=== PATIENT | male | born 1965 | race Caucasian/White ===

== ENCOUNTER 2024-01-08 09:54 | Emergency (ER) | payer BC, SELFPAY ==
[2024-01-08 10:14] VITALS: BP 142/89; PULSE 60; RESP 16; TEMP 36.6; O2SAT 100
--- NOTE | 2024-01-08 10:17 | ED.NAVMDI ---
HPI - Nausea/Vomiting/Diarrhea General Chief complaint: Nausea/Vomiting/Diarrhea Stated complaint: hemorrhoid Time Seen by Provider: 01/08/24 10:17 Source: patient, RN notes reviewed and old records reviewed Mode of arrival: ambulatory Limitations: no limitations History of Present Illness HPI Narrative: 58-year-old male to Express Care with complaint of hemorrhoid for 1 day. Patient has attempted to treat at home with witsolange Dunnel. Patient reports having strenuous bowel movement yesterday prior to noticing hemorrhoid. Patient denies history of hemorrhoids, bleeding, constipation, dietary changes, allergies, pertinent medical history. Patient reports having a bowel movement every 1-2 days. Patient resting in exam room in no acute distress. Related Data Home Medications Medication Instructions Recorded Confirmed atorvastatin 40 mg tablet 40 mg PO DAILY 01/08/24 01/08/24 lisinopril 10 mg tablet 10 mg PO DAILY 01/08/24 01/08/24 Allergies Allergy/AdvReac Type Severity Reaction Status Date / Time No Known Allergies Allergy Mild Verified 01/08/24 10:13 Review of Systems Review of Systems: All systems reviewed & are unremarkable except as noted in HPI and below Constitutional: Constitutional: Reports no additional constitutional complaints Eyes: Eyes: Reports no additional eye complaints ENT: Reports system reviewed and no additional complaints, except as documented Cardiovascular: Cardiovascular: Reports no additional cardiovascular complaints, Denies chest pain and Denies dyspnea Respiratory: Respiratory: Reports no additional respiratory complaints, Denies cough and Denies dyspnea Gastrointestinal: Gastrointestinal: Reports as per HPI and Reports other ( Hemorrhoid; strenuous bowel movement yesterday) Musculoskeletal: Musculoskeletal: Reports no additional musculoskeletal complaints Neurologic: Reports system reviewed and no additional complaints, except as documented Psychiatric: Psychiatric: Reports no additional psychiatric complaints PMFSH Comments At the time of my signature, I reviewed and agree with the nursing past medical, surgical, social, and family history. There is no relevant family history pertinent to the patient complaint. Exam Const: General: cooperative, healthy appearing, comfortable, no acute distress, alert and well nourished Nutritional Appearance: well nourished Orientation/consciousness: patient oriented x3 Limitations: no limitations HENMT: Head: normal to inspection Ears: external ears normal Face/Nose/Sinus: Normal external nose present, Normal nares present, normal facial exam, No erythema and No edema Face and sinus: normal facial exam, no erythema and no edema Mouth: Yes Normal oral and palatal mucosa present Eyes: General: appearance normal, both eyes and all related structures Neck: Neck: normal visual inspection, full ROM and no meningeal signs Chest: Chest palpation & inspection: normal inspection of the chest Resp: Effort & Inspection: normal respiratory effort and able to speak in complete sentences Cardio: Jugular venous distension: no JVD Rate: regular rate GI: Rectal Exam: External hemorrhoid(s) present Back/Spine/Pelvis: Cervical Spine: cervical ROM normal Skin: General skin exam: normal color, no rashes or lesions noted and turgor normal Neuro: General: patient oriented x3, gait normal, moves all extremities and no meningeal signs Speech: normal speech Gait exam (Neuro): Normal gait present Extrem: General: normal to inspection, full ROM and capillary refill normal Psych: Appearance: grossly normal and well kempt Course Course Emergency Course: Some parts of this dictation were generated by voice recognition software and may contain typographical and/or grammatical inaccuracies. Level of Care: Express Care Visit Vital Signs Vital signs: Vital Signs Temperature 36.6 C 01/08/24 10:14 Pulse Rate 60 01/08/24 10:14 Respiratory Rat
== END 2024-01-08 11:24 | disposition home or self-care (01) ==
PROVIDERS: Emergency Provider Nurse Practitioner Family
DX: K64.4 Residual hemorrhoidal skin tags (principal)
CPT/HCPCS: 99203; G0463

== ENCOUNTER 2024-03-25 15:51 | Emergency (ER) | payer BC, SELFPAY ==
--- NOTE | 2024-03-25 16:10 | ED_ITS ---
HPI - Fever General Chief Complaint: Fever Stated Complaint: Fever Time Seen by Provider: 03/25/24 16:24 Source: patient and RN notes reviewed Mode of arrival: ambulatory Limitations: no limitations History of Present Illness HPI Narrative: 4-year-old male presents concern for fever that started today. He reports mild headache for a few days. He reports some nasal congestion. He denies cough, shortness of breath, sore throat. MD elicited complaint: fever Related Data Home Medications ?Medication ?Instructions ?Recorded ?Confirmed ?Last Taken ?Type atorvastatin 40 mg tablet 40 mg PO DAILY 01/08/24 01/08/24 Unknown History lisinopril 10 mg tablet 10 mg PO DAILY 01/08/24 01/08/24 Unknown History Allergies Allergy/AdvReac Type Severity Reaction Status Date / Time No Known Allergies Allergy Mild Verified 03/25/24 16:20 Review of Systems Review of Systems: CONSTITUTIONAL: Denies malaise, chills, sweats. Reports fever. EYES: Denies visual changes, redness, or discharge. ENT: Reports rhinorrhea, congestion. Denies sinus pain, otalgia and sore throat. CARDIOVASCULAR: Denies chest pain, palpitations, or edema. RESPIRATORY: Reports cough. Denies dyspnea. GASTROINTESTINAL: Denies abdominal pain, nausea, vomiting, diarrhea SKIN: Denies rash or itching. MUSCULOSKELETAL: Denies myalgia. NEUROLOGIC: Reports headache. All systems reviewed & are unremarkable except as noted in HPI and below PMFSH Comments At time of signature, agree with nursing past medical, surgical, social and family history. There is no relevant family history pertinent to the presenting complaint Exam Narrative: GENERAL: Well-appearing, well-nourished, and in no acute distress. HEAD: Normocephalic EYES: PERRLA, conjunctivae clear ENT: Nares clear. Mucous membranes moist. TM pearly ferrera with sharp light reflex bilaterally; no tragal tenderness. Oropharynx not erythematous without lesions. Tonsils not enlarged and without exudate, no drooling, no hoarseness, no trismus, uvula midline. NECK: Supple. No lymphadenopathy CHEST: Clear to auscultation, breath sounds equal. No wheezing, rhonchi, rales, or stridor. No respiratory distress, speaks in full sentences. HEART: Regular rate and rhythm. No murmur heard. SKIN: Warm, dry, no rash. NEURO: Alert and oriented x3. PSYCH: Normal mood and affect Course Course Emergency Course: Patient is aware of diagnosis, understands and agrees to treatment plan. Anticipatory guidance given. Patient agrees to follow-up as directed and is aware of reasons to seek care at the emergency department. Portions of this record may have been created with voice recognition software Level of Care: Express Care Visit Vital Signs Vital signs: Reviewed. MDM - Fever Lab Data Attestation: I reviewed the patient's lab results. Critical Care Time Critical Care Time Critical Care Time: No Discharge Plan Discharge Clinical Impression: Viral illness Patient Disposition: Home, Self-Care Condition: Stable Instructions: Viral Syndrome (ED) Additional Instructions: Your rapid COVID and flu tests are negative Your rapid strep swab was negative today at [facility]. A throat culture will be sent to the laboratory for further testing. If the test is positive, you will receive a phone call within 48 hours and an appropriate antibiotic will be initiated at that time. Your symptoms are likely due to a viral illness, which is not treated with antibiotics. Viral symptoms can be present for up to a few weeks. -Alternate Tylenol and Motrin per package directions for fever or pain. -Antihistamine medication such as Benadryl at night and Zyrtec during the day can help improve symptoms. -Eat and drink things that are easy to swallow, like tea or soup, or popsicles to suck on. -Oral rinses such as: Salt water gargles and/or may use topical anesthetic (eg. Chloraseptic spray) or lozenges to relieve dryness or throat pain). -Frequent hand washing or hand partner alliance manager is one of the best ways to prevent spread of infection. -Follow up with primary care provider in 2-3 days if condition is not improving; or seek ER visit if you have trouble breathing, cannot drink enough fluids, have muffled voice, difficulty opening your mouth, or severe swelling. Patient Language: Hungarian Prescriptions: New pseudoephedrine HCl [12 Hour Decongestant] 120 mg tablet extended release 120 mg PO Q12H PRN (Reason: nasal congestion) Qty: 20 0RF No Action atorvastatin 40 mg tablet 40 mg PO DAILY lisinopril 10 mg tablet 10 mg PO DAILY hydrocortisone [Proctosol HC] 2.5 % cream with perineal applicator 1 applic RECTAL DAILY PRN (Reason: hemorrhoids) Qty: 30 0RF Rx Instructions: Do not use for more than 7 days Follow-up/Referrals: PHYSICIAN,MANAGER WORK [Primary Care Provider] - Time of Disposition: 16:33
[2024-03-25 16:23] VITALS: BP 141/88; PULSE 78; RESP 16; TEMP 37.6; O2SAT 100
[2024-03-25 16:30] LABS: EDCOVIDSCREEN Negative (Negative); EDINFLUASCREEN Negative (Negative); EDINFLUBSCREEN Negative (Negative); EDSTREPNEGPOS1 Negative (Negative)
== END 2024-03-25 16:35 | disposition home or self-care (01) ==
PROVIDERS: Emergency Provider Nurse Practitioner
DX: B34.9 Viral infection, unspecified (principal); Z20.822 Contact with and (suspected) exposure to COVID-19
CPT/HCPCS: 87081; 87426; 87804; 87880; 99213; G0463

== ENCOUNTER 2024-12-01 11:24 | Emergency (ER) | payer BC, SELFPAY ==
--- OUTSIDE RECORDS SUMMARY | 2010-08-08 19:00 | XMS_ITS | Continuity of Care Document ---
[facility] Organization [facility] Address [address] [place] [address] Phone Care Team Providers Care Traffic Maintenance Officer Name Role Phone Conversion MD, Doctor Unavailable Unavailabl e Medications Medication Instructions Dosage Effective Dates (start - stop) Status Comments FLONASE 50MCG APPLICS 2 QD - Acti ve HYDROCHLOROTHIAZIDE 25 MG TB 1 QAM - Active NICOLAS 180MG TABS 1 QD - Active ALBUTEROL 90MCG PUFFS 2 QID - Acti ve AMOXICILLIN 500MG CAPS 1 TID - No Longer Active DOXYCYCLINE MONOHYDRATE 100MG 1 QD - No Longer Active GUAIFENESIN W/CODEINE 100-10MG 10 Q 4HR - No Longer Active HYDROCHLOROTHIAZIDE 25MG TABS 1 QAM - No Longer Active Advance Directives Directive Yes / No Effective Date File Name No Information Encounters Encounter Description Practice Location Reason(s) For Visit Diagnoses Date Provider Providers Copied on Encounter [facility], [address], [place], [place], [address], tel:[phone] [facility] No Information 7-201 1 Conversion Doctor. [facility] [place], [address], . [facility], [address], [place], [place], [address], tel:[phone] [facility] ACUTE SINUSITIS NOS 0-200 6 Conversion Doctor. [place], [address], . [facility], [address], [place], [place], [address], tel:[phone] [facility] BENIGN HYPERTENSION Dec-2 0-200 5 Conversion Doctor. [address] [facility], [place], [address], [place]. [facility], [address], [place], [place], [address], tel:[phone] [facility] GOITER NOS Dec-0 8-200 5 Arsenio Bryan. [address], [place], [place], [address], [place]. tel:[phone] [facility] [address], [place], [place], [address], tel:[phone] [facility] ACUTE BRONCHITISLOCAL SUPRFICIAL SWELLNGELEV BL PRES W/O HYPERTN Dec-0 6-200 5 Arsenio Bryan. [address], [place], [place], [address], [place]. tel:[phone] [facility] [address], [place], [place], [address], tel:[phone] [facility] COUGH Feb-2 1-200 5 Conversion Doctor. [address] [facility], [place], [address], [place] [facility] [address], [place], [place], [address], tel:[phone] [facility] SPRAIN NOSMIXED HYPERLIPIDEMIA Fidencio-2 3-200 4 Arsenio Bryan. [address], [place], [place], [address], [place]. tel:[phone] [facility], [address], [place], [place], [address], tel:[phone] [facility] SCREEN-BLOOD DIS NOSCARPAL TUNNEL SYNDROMEOTITIS MEDIA NOS Sep-2 5-200 0 [place] Bryan. [address], [place], [place], [address], [place]. tel:[phone] Family History Family Member Type Diagnosis Age At Onset No Information Payers Payer name Insurance type Covered democrat ID Authoriza tion(s) No Information Social History Type Description Quantity Date Captured Comments Sex Male Smoking Status No Information Chief Complaint And Reason For Visit No Information Reason For Referral Reason For Referral No Information History Of Present Illness Encounter Date Complaint History Of Prese nt Illness No Information Functional Status Date Functional Assessmen t No Information Instructions Date Instruction Additional Infor mation No Information Assessments Type Assessment Date No Information Patient Care Teams Name Effective Dates (start - stop) Status Members No Information
--- NOTE | ~2024-12-01 | XR_ITS ---
XR finger 1st RT min 2V 12/01/2024 12:19 Indication: Dog bite right first finger Procedure: 3 views right first finger Comparison: No prior studies for comparison. Findings: No fracture, subluxation or dislocation. No soft tissue abnormality. No foreign bodies. Impression: 1: No acute abnormality of the right first finger. Reviewed, dictated and finalized at location O. Impression: 1: No acute abnormality of the right first finger.
[2024-12-01 11:27] VITALS: BP 134/85; PULSE 85; RESP 18; TEMP 36.1; O2SAT 99
--- OUTSIDE RECORDS SUMMARY | 2024-12-01 11:30 | XMS_ITS | Clinical Summary ---
Author Organization [facility] Address [address] [place] [address] Care Team Providers Care Tower Supervisor Name Role Phone Unavailable Primary Care Provider Unavailabl e Source Comments [facility],non-owned Affiliates and Associated Physician Practices is amultiple site organization consisting of ambulatory clinics and hospital sitesin [place], [place], [place] and [place]. This disclosure is being madepursuant to the Care Everywhere program and may not contain all information available regarding this patient. Last updated 17.[facility] Allergies No known active allergies Medications * Be aware that medications may not be up to date on this document. Alwaysverify current medications with the patient. multivitamin daily (THERAGRAN) tablet Take 1 Tab by mouth daily with food. 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 Gender Identity Not on file Sexual Orientation Not on file Last Filed Vital Signs Vital Sign Reading Time Taken Comments Blood Pressure 143/97 09/22/2011 1:33 PM CDT Pulse 72 09/22/2011 1:33 PM CDT Temperature 36.7 C (98 F) 09/22/2011 1:33 PM CDT Respiratory Rate 20 09/22/2011 1:33 PM CDT Oxygen Saturation 96% 09/22/2011 1:33 PM CDT Inhaled Oxygen Concentration - - Weight 68 kg (150 lb) 09/22/2011 8:28 AM CDT Height 162.6 cm (5' 4) 09/22/2011 8:28 AM CDT Body Mass Index 25.75 09/22/2011 8:28 AM CDT Plan of Treatment Health Maintenance Due Date Last Done Comments COLOGUARD (AGES 45-75) - COL ON CA SCREENING 1963 COLON MONITORING 1963 COLONOSCOPY - COLON CA SCREENING 1963 CT COLONOGRAPHY - COLON CA SCREENING 1963 Colorectal Cancer Screening 1963 FIT - COLON CA SCREENING 1963 FLEX SIG - COLON CA SCREENING 1963 LIPID TESTING 1963 HIV SCREENING 08/21/1978 HEPATITIS C SCREENING 08/17/1981 DTAP/TDAP/TD VACCINES (1 - Tdap) 08/21/1982 PNEUMOCOCCAL VACCINE 50+ (1 of 1 - PCV) 08/21/2013 ZOSTER VACCINE (1 of 2) 08/21/2013 COVID-19 VACCINE (1 - 2023-2 5 season) 2023 DEPRESSION SCREENING 04/05/2024 INFLUENZA VACCINE (#1) 2024 Respiratory Syncytial Virus (RSV) Vaccine Pt: or over 60 yrs (1 - 1-dose 75+ series) 08/21/2038 HEPATITIS B VACCINE Aged Out No longe r eligible based on patient's age to complete this topic HIB VACCINE Aged Out No longer eligi ble based on patient's age to complete this topic HPV VACCINE Aged Out No longer eligi ble based on patient's age to complete this topic MENINGOCOCCAL (Group B) VACC INE SHARED DECISION-MAKING Aged Out No longer eligibl e based on patient's age to complete this topic MENINGOCOCCAL GROUPS A/C/Y/W VACCINE Aged Out No longer eligible b ased on patient's age to complete this topic Advance Directives * FULL RESUSCITATION (Latest Code Status on File) Date Activated Date Inactivated Comments 09/22/2011 2:05 PM 09/23/2011 6:05 AM
--- OUTSIDE RECORDS SUMMARY | 2024-12-01 11:30 | XMS_ITS | Encounter Summary ---
Author Organization [facility] Address [address] [place] [address] Care Team Providers Care Audiovisual Librarian Name Role Phone Joshua Valenzuela MD Primary Care Provider Encounter Details Date Type Department Care Team (Late st Contact Info) Description 12/01/2024 Patient Self-Triage [facility] [address] [place] [address] Social History Tobacco Use Types Packs/Day Years Used Date Smoking Tobacco: Former Cigarettes 0.5 5 0 05/27/1984 - 05/27/1989 Smokeless Tobacco: Never Alcohol Use Standard Drinks/Week Comments Yes 1 (1 standard drink = 0.6 oz pur e alcohol) social Feeling Safe Answer Date Recorded Are you in a relationship wi th someone who hurts you emotionally and/or physically? 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 [place] [address] 02/09/2025 9:00 AM SUPERVISOR POWDERED SUGAR Office Visit [facility] Primary Care - [facility] [address] [place] [address] Joshua Valenzuela MD [address] [place] [address]. [address] [place] [address] 03/09/2025 8:00 AM SUPERVISOR POWDERED SUGAR Office Visit [facility] [address] [place] [address] Taiwo Glass MD [facility] [address] [place] [address] documented as of this encounter Goals Goal Patient Goal Type Associated Problems Recent Progress Patient-Stated? Author Patient and or caregiver verbalizes understanding of self management skills needed Care Plan PATIENT BEING FOLLOWED FOR CHRONIC DISEASE MANAGEMENT No Halie Srinivasan RN documented as of this encounter Visit Diagnoses Not on filedocumented in this encounter Additional Health Concerns Active Problems Noted Date Diagnosed Date PATIENT BEING FOLLOWED FOR CHRONIC DISEASE MANAG EMENT 04/17/2022 documented as of this encounter Care Teams Audiovisual Librarian Relationship Specialty Start Date End Date Joshua Valenzuela MD [address] [facility] [place] [address] PCP - General Internal Medicine 03/07/21 documented as of this encounter
--- OUTSIDE RECORDS SUMMARY | 2024-12-01 11:30 | XMS_ITS | Clinical Summary ---
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 Active aspirin (ECOTRIN EC) 81 mg Tablet, Delayed Release (E.C.) Take 81 mg by mouth daily. Active cod liver oiL Oil Take 15 mL by mouth daily. Started Mid Mar 2023 Active Procto-Med HC 2.5 % cream with perineal applicator by See Admin Instructions route. APPLY CREAM RECTALLY ONCE DAILY NEEDED, DO NOT USE FOR MORE THAN 7 DAYS 01/08/20 24 Active atorvastatin (LIPITOR) 40 mg tabletIndications: Elevated coronary artery calcium score,Mixed hyperlipidemia TAKE 1 TABLET BY MOUTH ONCE DAILY WITH SUPPER 100 Tablet 3 04/04/20 24 Active creatine, bulk, 100 % Powder 100 % daily. 06/18/19 25 Active lisinopriL (PRINIVIL) 10 mg tabletIndications: Benign hypertension Take 1 tablet by mouth once daily 90 Tablet 09/21/19 25 Active Active Problems Problem Noted Date Diagnosed Date HLD (hyperlipidemia) 04/13/2023 Thyroid nodule 04/13/2023 Brain TIA 04/13/2023 Benign hypertension 03/09/2016 H/O renal cell carcinoma 03/09/2016 Resolved Problems Problem Noted Date Diagnosed Date Resolved Date Numbness of left foot 04/13/20232024 Injury of head 09/22/2011 08/24/2024 Trauma 09/22/2011 08/24/2024 Chest pain 08/24/2024 Encounters Date Type Department Care Team Description 12/01/2024 Patient Self-Triage [facility] [address] [place] [address] 11/21/2024 External Device Data STL ABSTRACTION Provider, Abstract 11/08/2024 External Device Data STL ABSTRACTION Provider, Abstract 10/16/2024 External Device Data Initial Department [address] [place] [address] Dr GOODWINN: [place] [address] [facility], 10/16/2024 Telephone [facility] [address] [place] [address] Belen Rey RN Hypertension 10/15/2024 External Device Data Initial Department [address] [place] [address] Dr GOODWINN: [place] [address] [facility], 10/12/2024 External Device Data Initial Department [address] [place] [address] Dr GOODWINN: [place] [address] [facility], 10/11/2024 External Device Data Initial Department [address] [place] [address] Dr GOODWINN: [place] [address] [facility], 10/08/2024 External Device Data Initial Department [address] [place] [address] Dr GOODWINN: [place] [address] [facility], 10/07/2024 External Device Data Initial Department [address] [place] [address] Dr GOODWINN: [place] [address] [facility], 10/03/2024 External Device Data Initial Department [address] [place] [address] Dr GOODWINN: [place] [address] [facility], 10/02/2024 External Device Data Initial Department [address] [place] [address] Dr GOODWINN: [place] [address] [facility], 09/28/2024 External Device Data Initial Department [address] [place] [address] Dr GOODWINN: [place] [address] [facility], 09/26/2024 External Device Data Initial Department [address] [place] [address] Dr GOODWINN: [place] [address] [facility], 09/25/2024 External Device Data Initial Department [address] [place] [address] Dr GOODWINN: [place] [address] [facility], 09/21/2024 External Device Data Initial Department [address] [place] [address] Dr NICOLE: [place] [address] [facility], 09/20/2024 External Device Data STL ABSTRACTION Provider, Abstract 09/20/2024 External Device Data Initial Department [address] [place] [address] Dr NICOLE: [place] [address] [facility], 09/20/2024 [facility] [address] [facility] [address] [place] [phone] Joshua Valenzuela MD Benign hypertension 09/19/2024 External Device Data Initial Department [address] [place] [address] Dr NICOLE: [place] [address] [facility], 09/18/2024 External Device Data Initial Department [address] [place] [address] Dr NICOLE: [place] [address] [facility], 09/11/2024 [facility] [address] [facility] [address] [place] [phone] Joshua Valenzuela MD Benign hypertension (Primary Dx) 09/07/2024 External Device Data Initial Department [address] [place] [address] Dr NICOLE: [place] [address] [facility], 09/06/2024 External Device Data Initial Department [address] [place] [address] Dr NICOLE: [place] [address] [facility], 09/05/2024 External Device Data Initial Department [address] [place] [address] Dr NICOLE: [place] [address], 09/04/[address] [address] Belen Rey, RN Hypertension from Last 3 Months Immunizations Immunization Administration Dates Next Due (PFIZER)(12 YR UP) COVID-19 VACCINE - EMERGENCY USE AUTHORIZATION, MRNA, [id number](PF) 30 MCG/0.3 ML IM SUSP 01/08/2024,07/26/2021,03/01/2021,2020,08/27/2020 (Pfizer Bivalent)(12 Yr Up) COVID-19 Vaccine - Emergency Use Authorization, MRNA, Lnp-S(Pf) 30 Mcg/0.3 Ml Susp 01/09/2022 (SHINGRIX)(50 YRS UP) ZOSTER VACCINE RECOMBINANT, 0.5 ML, IM 07/18/2022,12/13/2021 Hepatitis A Vaccine 06/28/2014 INFLUENZA VACCINE QUADRIVALE NT RECOMB 18 YR UP PF IM 02/10/2020 INFLUENZA VACCINE TRIVALENT SPLIT VIRUS, (6 MOS UP), 0.5ML (PF), IM 01/08/2024 Influenza Seasonal Unspecifi ed Formulation IM 01/15/2023,02/24/2022,01/17/2021,2019,01/06/2016 Family History Medical History Relation Name Comments Cancer Father Anil Prostate Heart Disease Father Anil s/p CABG Prostate Cancer Father Anil Lung Cancer Mother Elvira longtime smoker Stroke Mother Elvira Colon Cancer Neg Hx Relation Name Status Comments Father Anil Mother Elvira Social History Tobacco Use Types Packs/Day Years Used Date Smoking Tobacco: Former Cigarettes 0.5 5 0 05/27/1984 - 05/27/1989 Smokeless Tobacco: Never Tobacco Cessation:Counseling Given: Not Answered Alcohol Use Standard Drinks/Week Comments Yes 1 [...] Sex Assigned at Male 02/24/2023 7:57 PM TECHNOLOGY PROGRAM MANAGER Legal Sex Male 4:26 AM TECHNOLOGY PROGRAM MANAGER Gender Identity Male 02/24/2023 7:57 PM TECHNOLOGY PROGRAM MANAGER Sexual Orientation Not on file Last Filed Vital Signs Vital Sign Reading Time Taken Comments Blood Pressure 134/90 08/25/2024 8:19 AM CDT Pulse 54 08/25/2024 8:19 AM CDT Temperature 37 C (98.6 F) 08/24/2024 8:15 AM CDT Respiratory Rate 16 07/21/2024 10:25 AM CDT Oxygen Saturation 100% 08/25/2024 8:19 AM CDT Inhaled Oxygen Concentration - - Weight 72.6 kg (160 lb) 08/25/2024 8:19 AM CDT Height 165.1 cm (5' 5) 08/25/2024 8:19 AM CDT Body Mass Index 26.63 08/25/2024 8:19 AM CDT Plan of Treatment Upcoming Encounters Date Type Department Care Team (Late st Contact Info) Description 12/18/2024 8:30 AM CDT Hospital Encounter [facility] Imaging Services [facility] [address] [place] [address] Joshua Valenzuela MD [address] [place] [address]. [address] [place] [phone] 02/09/2025 9:00 AM TECHNOLOGY PROGRAM MANAGER Office Visit [facility] Primary Care - [facility] [address] [facility] [address] [place] [phone] Joshua Valenzuela MD [address] [place] [address]. [address] [place] [phone] 03/09/2025 8:00 AM TECHNOLOGY PROGRAM MANAGER Office Visit [facility] [place] [address] [facility] [address] [place] [address] Taiwo Glass MD [address] [place] [address] [address] [place] [address] Health Maintenance Due Date Last Done Comments DTAP/TDAP/TD VACCINES (1 - Tdap) 08/21/1982 FIT-DNA Q 3 years 08/21/2008 FIT/FOBT Q 1 year 08/21/2008 Flex Sig/CT Colonography Q 5 years 08/21/2008 COVID-19 Vaccine (2023-2 5 season) 2024 01/08/2024, 01/09/2022, 07/26/2021, Additional history exists INFLUENZA VACCINE (#1) 2024 , 01/15/2023, 02/24/2022, Additional history exists Pre-Diabetes and Diabetes Screening 04/13/2026 04/13/2023 COLORECTAL SCREENING 12/21/2029 12/22/2019, 12/22/2019, 12/22/2019 Colorectal Cancer Screening 12/21/2029 RSV VACCINE (60+ or ) (1 - 1-dose 75+ series) 08/21/2038 ZOSTER VACCINE Completed 07/18/2022, 12/13/2021 Goals Goal Patient Goal Type Associated Problems Recent Progress Patient-Stated? Author Patient and or caregiver verbalizes understanding of self management skills needed Care Plan PATIENT BEING FOLLOWED FOR CHRONIC DISEASE MANAGEMENT No Halie Srinivasan RN Medical Devices Implanted Type Area Sitecore Developer Device Identifier Shelf Expiration Date Model / Serial / Lot Plate Clav Cntrl Third Lt Ss [id number] - Ssterilized 05/27/17 Implanted:Qty: 1 on 05/27/2017 by Tyrone Limon MD at [facility] Plate Left: Clavicle [employer] [id number] / STERILIZED 05/27/17 / LOAD #15 Description:All [employer] Clav icle components are processed on requisition,[id number]. Screw Lp Ft Ss 3.5x16mm [id number] - Ssterilized 05/27/17 Implanted:Qty: 2 on 05/27/2017 by Tyrone Limon MD at [facility] Screw Left: Clavicle [employer] [id number] / STERILIZED 05/27/17 / LOAD #15 Screw Lp Ft Ss 3.5x18mm [id number] - Ssterilized 05/27/17 Implanted:Qty: 3 on 05/27/2017 by Tyrone Limon MD at [facility] Screw Left: Clavicle [employer] AR-[id number] / STERILIZED 05/27/17 / LOAD #15 Screw Lp Ft Ss 3.5x20mm [id number] - Ssterilized 05/27/17 Implanted:Qty: 3 on 05/27/2017 by Tyrone Limon MD at [facility] Screw Left: Clavicle [employer] AR-8835-20 / STERILIZED 05/27/17 / LOAD #15 Screw Lp Ft Ss 3.5x12mm [id number] - Ssterilized 05/27/17 Implanted:Qty: 1 on 05/27/2017 by Tyrone Limon MD at [facility] Screw Left: Clavicle [employer] AR-8835-12 / STERILIZED 05/27/17 / LOAD #15 Explanted Type Area Sitecore Developer Device Identifier Shelf Expiration Date Model / Serial / Lot Wire K Trocar Dbl .[id number] - [id number] Implanted:Qty: 1 Explanted:Qty: 1 on 05/27/2017 at [facility] Wire Left: Clavicle BRASSELER RUST [id number] / / Procedures Procedure Name Priority Date/Time Associated Diagnosis Comments HEMOGLOBIN A1C Stat 04/13/2023 1:12 AM TECHNOLOGY PROGRAM MANAGER COLONOSCOPY REPORT 12/22/2019 7: 25 AM CDT from Last 3 Months or Most Recently Relevant to Health Maintenance Results * HEMOGLOBIN A1C (04/13/2023 1:12 AM TECHNOLOGY PROGRAM MANAGER) HEMOGLOBIN A1C 5.2 <5.7 % 04/13/2023 5:45 AM TECHNOLOGY PROGRAM MANAGER [facility] EST. AVG GLUCOSE, A1C 103 mg/dL 04/13/2023 5:45 AM TECHNOLOGY PROGRAM MANAGER [facility] Blood Venipuncture / Unknown 04/13/2023 1:12 AM TECHNOLOGY PROGRAM MANAGER 04/13/2023 1:17 AM TECHNOLOGY PROGRAM MANAGER Narrative [facility] - 04/13/2023 5:45 AM TECHNOLOGY PROGRAM MANAGER HGB A1C INTERPRETATION NORMAL: <5.7% PRE-DIABETES: 5.7 - 6.4% DIABETES: 6.5% OR GREATER us Radha Marin MD CHEMISTRY ORDERABLES Fi nal Result [facility] CLIA# [id number] 5 SMary [facility] JENNIFER JEM RIVAS [id number] * COLONOSCOPY REPORT (12/22/2019 7:25 AM CDT) Narrative Procedure Note Lotsoff, Tyrone, MD - 12/22/2019 7:24 AM CDT [facility] Patient Name: Shakir Heath Procedure Date: 12/22/2019 Date of : 1965 Admit Type: Outpatient Age: 54 Attending MD: Tyrone Lee MD Procedure: Colonoscopy Indications: Screening for colorectal malignant neoplasm Providers: Tyrone Lee MD Referring MD: Tyrone Beckham Medicines: TIVA Procedure: Informed consent was obtained for the procedure, including moderate sedation after risks were discussed. Based on the pre-procedure assessment, including review of the patient's medical history, medications, allergies, and review of systems, the patient was deemed to be an appropriate candidate for sedation. A timeout was performed. Continuous ECG monitoring, pulse oximetry, blood pressure monitoring, and direct observation were performed. The Colonoscope was introduced through the anus and advanced to the terminal ileum. The colonoscopy was performed without difficulty. The patient tolerated the procedure well. The quality of the bowel preparation was good. Estimated Blood Loss: Estimated blood loss: none. Findings: Internal hemorrhoids were found during retroflexion. The hemorrhoids were mild. The exam was otherwise without abnormality. Complications: No immediate complications. Estimated blood loss: None. Impression: - Internal hemorrhoids. - The examination was otherwise normal. - No specimens collected. Recommendation: - Repeat colonoscopy in 10 years for screening purposes. Tyrone Lee MD 12/22/2019 7:24:32 AM This report has been signed electronically. Number of Addenda: 0 Procedure Date: 12/22/2019 6:13:[address] [place] [id number] [address] Tyrone Lee MD GI PROCEDURE ORDERABLES Final R esult from Last 3 Months or Most Recently Relevant to Health Maintenance Additional Health Concerns Active Problems Noted Date Diagnosed Date PATIENT BEING FOLLOWED FOR CHRONIC DISEASE MANAG EMENT 04/17/2022 Insurance [facility] BLUE ACCESS CHOICE [facility] BLUE ACCESS CHOICE Advance Directives For more information, please contact: [phone] * Full Code (Latest Code Status on File) Date Activated Date Inactivated Comments 04/13/2023 8:54 AM 04/14/2023 1:18 AM * Full Code Date Activated Date Inactivated Comments 04/13/2023 8:49 AM 04/13/2023 8:54 AM * Full Code Date Activated Date Inactivated Comments 12/22/2019 6:29 AM 12/22/2019 10:23 AM * Full Code Date Activated Date Inactivated Comments 05/27/2017 1:47 PM 05/27/2017 7:57 PM * Full Code Date Activated Date Inactivated Comments 05/27/2017 1:19 PM 05/27/2017 1:47 PM Care Teams Mortgage Processing Clerk Relationship Specialty Start Date End Date Joshua Valenzuela MD [address] [place] [address] [address] [place] [address] PCP - General Internal Medicine 03/07/21
--- OUTSIDE RECORDS SUMMARY | 2024-12-01 11:30 | XMS_ITS ---
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 Name Role Phone Joshua Valenzuela MD Primary Care Provider Active Problems Problem Noted Date Diagnosed Date HLD (hyperlipidemia) 04/13/2023 Thyroid nodule 04/13/2023 Brain TIA 04/13/2023 Benign hypertension 03/09/2016 H/O renal cell carcinoma 03/09/2016 Resolved Problems Problem Noted Date Diagnosed Date Resolved Date Numbness of left foot 04/13/20232024 Injury of head 09/22/2011 08/24/2024 Trauma 09/22/2011 08/24/2024 Chest pain 08/24/2024 Additional Health Concerns Active Problems Noted Date Diagnosed Date PATIENT BEING FOLLOWED FOR CHRONIC DISEASE MANAG EMENT 04/17/2022 Goals Goal Patient Goal Type Associated Problems Recent Progress Patient-Stated? Author Patient and or caregiver verbalizes understanding of self management skills needed Care Plan PATIENT BEING FOLLOWED FOR CHRONIC DISEASE MANAGEMENT No Halie Srinivasan RN Interventions Care Plan Interventions Intervention Entry Date Outcome Facilitate referral to Seismology Technical Officer/Loan Documents Closer 04/17/2022 Note:Addressed: Educate patient utilizing patient's preferred method. Consider utilizing MAY, Healthwise, face to face, and verbal instructions 04/17/2022 Note:Addressed: Durable medical equipment in place to support patient 04/17/2022 Note:Addressed: Review importance of Advanced Directives and having documents on file 04/17/2022 Note:Addressed: Review importance of keeping provider visits 04/17/2022 Note:Addressed: hospital social worker evaluation of needs, financial, placement and support 04/17/2022 Note:Addressed: Physical/occupational needs addressed to improve deficits 04/17/2022 Note:Addressed: Review importance of adequate nutrition and hydration 04/17/2022 Note:Addressed: Assessment of symptoms 04/17/2022 Note:Addressed: Related Goals and Interventions Goal Associated Intervent ions Patient and or caregiver danielle balizes understanding of self management skills needed Facilitate referral to Seismology Technical Officer/Loan Documents Closer; Educate patient utilizing patient's preferred method. Consider utilizing MAY, Healthwise, face to face, and verbal instructions; Durable medical equipment in place to support patient; Review importance of Advanced Directives and having documents on file; Review importance of keeping provider visits; hospital social worker evaluation of needs, financial, placement and support; Physical/occupational needs addressed to improve deficits; Review importance of adequate nutrition and hydration; Assessment of symptoms
[2024-12-01] MEDS: TETANUS,DIPHTHERIA,AC PERTUSSIS ADULT (0.5 ML) BOOSTRIX IM (11:58)
--- NOTE | 2024-12-01 12:06 | ED_ITS ---
HPI - Animal Bite General Chief Complaint: Animal Bite Stated Complaint: dog bite to right thumb Time Seen by Provider: 12/01/24 12:06 Source: patient Mode of arrival: ambulatory Limitations: no limitations History of Present Illness HPI narrative: 59 years old white male was trying to pull his dog out of the yd in the middle of the night, it same dog got mad and bit his right thump, very superficial, did not penetrate the skin. Patient have the dog at home, the dog rabies vaccine on week ago Related Data Home Medications ?Medication ?Instructions ?Recorded ?Confirmed ?Last Taken ?Type atorvastatin 40 mg tablet 40 mg PO DAILY 01/08/2408/26 Unknown History lisinopril 10 mg tablet 10 mg PO DAILY 01/08/2408/26 Unknown History Allergies Allergy/AdvReac Type Severity Reaction Status Date / Time No Known Allergies Allergy Mild Verified 03/25/24 16:20 Review of Systems Review of Systems: All systems reviewed & are unremarkable except as noted in HPI and below Exam Narrative: General appearance: Well-developed, well-nourished Skin: Normal color Head: Normocephalic, nontraumatic Chest and respiratory: Airway patent, no respiratory distress, no accessory muscle use Heart: Regular rate/rhythm Vascular: Normal peripheral pulses, normal capillary refill. Musculoskeletal: superficial abrasion 3mm at the dorsal side of the terminal phalanx of the right thumb Neurologic: Alert and oriented ?3, REFUELING RAMP ATTENDANT is normal as tested, no gross motor deficit Course Vital Signs Vital signs: Vital Signs Temperature 36.1 C L 12/01/24 11:27 Pulse Rate 85 12/01/24 11:27 Respiratory Rate 18 12/01/24 11:27 Blood Pressure 134/85 12/01/24 11:27 Pulse Oximetry 99 12/01/24 11:27 Oxygen Delivery Room Air 12/01/24 11:27 Temperature 36.1 C L 12/01/24 11:27 Pulse Rate 85 12/01/24 11:27 Respiratory Rate 18 12/01/24 11:27 Blood Pressure 134/85 12/01/24 11:27 Pulse Oximetry 99 12/01/24 11:27 Oxygen Delivery Room Air 12/01/24 11:27 MDM - Animal Bite MDM Narrative Medical decision making narrative: Abrasion secondary to dog bite, Patient received a tetanus shot, x-ray of the right thumb showed no acute osseous abnormality Discharged on Augmentin. Differential Diagnosis Differential diagnosis: Likely other (As above) Imaging Data Radiologist's impression: Impressions Finger X-Ray 12/01/24 12:20 Impression: 1: No acute abnormality of the right first finger. Critical Care Time Critical Care Time Critical Care Time: No Discharge Plan Discharge Clinical Impression: Dog bite Patient Disposition: Home Condition: Stable Instructions: Antibiotic Form, Animal Bite (ED) Additional Instructions: Return if symptoms are worsening , call your family physician for appointment, take Tylenol as as needed for aches and pain, continue home medications. Clean with warm water and soap Patient Language: Frisian Prescriptions: New amoxicillin-pot clavulanate 875-125 mg tablet 1 tablet PO Q12H Qty: 14 0RF No Action atorvastatin 40 mg tablet 40 mg PO DAILY lisinopril 10 mg tablet 10 mg PO DAILY hydrocortisone [Proctosol HC] 2.5 % cream with perineal applicator 1 applic RECTAL DAILY PRN (Reason: hemorrhoids) Qty: 30 0RF Rx Instructions: Do not use for more than 7 days pseudoephedrine HCl [12 Hour Decongestant] 120 mg tablet extended release 120 mg PO Q12H PRN (Reason: nasal congestion) Qty: 20 0RF Follow-up/Referrals: PHYSICIAN,INCLUSION SPECIAL EDUCATION TEACHER [Non-Staff, Internal Medicine]
== END 2024-12-01 13:03 | disposition home or self-care (01) ==
PROVIDERS: Emergency Provider Emergency Medicine
DX: S61.051A Open bite of right thumb without damage to nail, initial encounter (principal); Z23 Encounter for immunization; W54.0XXA Bitten by dog, initial encounter
CPT/HCPCS: 73140; 90471; 90715; 99283